=== PATIENT | male | born 1955 | race Caucasian/White ===

== ENCOUNTER 2016-11-08 22:24 | Emergency (ER) | payer BC ==
[~2016-11-08] VITALS: Ht 172.7 cm; Wt 103.0 kg
[~2016-11-08 22:24] MED LIST: HYDR-906 PO; IBUP-1542 PO
[2016-11-08 22:37] VITALS: Ht 172.7 cm; Wt 103.0 kg
[2016-11-08] MEDS ORDERED: DIPHENHYDRAMINE 25 MG CAP PO ONE (23:30)
--- NOTE | 2016-11-09 00:07 | ERD ---
ER Documentation Chief Complaint Date/Time DATE: 11/08/16 TIME: 23:45 Chief Complaint MULTIPLE BITES ON BACK FROM LITTLE BLACK FLIES HPI This pleasant gentleman speaking male patient brought into emergency department today by his who is available for translation. Patient reports insect bites after cleaning out his music room in his house. Patient has a few of the bugs in an enclosed clear plastic case for nurse practitioner to view. Bugs appear to look like ants, not bedbugs. Patient reports they have lived in the house for 3 years has never experienced bugs are biting in the past. Patient has multiple red raised pruritic welts on back, calves, ankles and feet. Patient reports that he was playing music without a shirt on. Patient denies shortness of breath or fever. Patient has been using [id number] anti-itch spray from [facility] with little relief of symptoms, has not tried any [id number] Benadryl or other antihistamine for itch relief. ROS All systems reviewed and are negative except as per history of present illness. Medications Home Meds Active Scripts Hydrocodone/Acetaminophen (Mallory 5-325 Tablet) 1 Each Tablet, 1 TAB PO Q6H Y for PAIN, #12 TAB Prov:TOÑA DIAZ MD 02/03/16 Ibuprofen* (Motrin*) 600 Mg Tab, 600 MG PO Q6, #20 TAB Prov:TOÑA DIAZ MD 02/03/16 Allergies Allergies: Coded Allergies: No Known Allergy (Unverified , 02/03/16) PMhx/Soc Anesthesia Reaction: No Hx Neurological Disorder: No Hx Respiratory Disorders: No Hx Cardiac Disorders: No Hx Psychiatric Problems: No Hx Miscellaneous Medical Probl: No Hx Alcohol Use: Yes (SOCIAL) Hx Substance Use: No Hx Tobacco Use: No Physical Exam Vitals Vital Signs Date Time Temp Pulse Resp B/P Pulse Ox O2 Delivery O2 Flow Rate FiO2 11/08/16 22:37 96.3 88 18 148/84 95 Vitals stable, triage notes reviewed Physical Exam Const: No acute distress Head: Atraumatic Eyes: Normal Conjunctiva PERRLA, EOMI ENT: Normal External Ears, Nose and Mouth, mucous membranes Neck: Resp: Chest rise and fall symmetrically, no respiratory distress Cardio: Abd: Skin: Multiple scattered red welted raised plaques on back, left calf, right foot. Plaques are erythemic, skin intact, and no scratch [place] Back: Ext: Neur: Awake and alert Psych: Normal Mood and Affect Results 24 hrs Current Medications Medications (Trade) Dose Ordered Sig/Elia Route PRN Reason Start Time Stop Time Status Last Admin Dose Admin Diphenhydramine HCl (Benadryl) 25 mg ONCE ONCE PO 11/08/16 23:30 11/08/16 23:31 DC Procedures/MDM This pleasant 61-year-old male patient presents to emergency department with multiple raised welted insect bites on back, calves, and feet. Patient reports insect bites after cleaning out a music warm and then playing music in the room without his shirt on. Patient denies any history of recent travel. Has lived in the house for 3 years. Has never experience infestation in the past. Patient denies any dog or animal brought into the environment. Patient's is in room who denies any insect bites herself. Cellulitis is not likely although some bites appear to be infected. Plan to treat patient in triage with 25 mg of Benadryl, and discharged home with Keflex, and Benadryl every 6 hours. Patient was encouraged to call a construction inspector. avoid the music room until evaluation by construction inspector. Keep door shut. Return to emergency department for worsening of symptoms, pleuritis, fever, I feel the patient is stable for discharge at this time. I have discussed results, examination findings, the treatment plan with the patient and family present prior to discharge. Indications for emergent reevaluation, side effects of medication were also discussed. All questions were answered. Patient verbalizes understanding and agrees with plan of care. Departure Diagnosis: Primary Impression: Infected insect bite of back Encounter type: initial encounter Laterality: unspecified laterality Qualified Code: S20.479A - Infected insect bite of back, unspecified laterality , initial encounter Condition: Good Patient Instructions: Insect Bite Additional Instructions: Thank you for for coming to [facility] for your care today. Please ask your nurse or provider if you have questions about your care today and do not leave until all your questions have been answered. Please use any medications given as directed and follow-up with your doctor (or the doctor you were referred to) in the next 2-3 days. If you do not have a primary care doctor you may follow up at the [facility] (listed below). You may also use motrin and tylenol as needed for fever and/or pain unless instructed otherwise by your provider or nurse. Indications for more urgent follow-up have been discussed, but you may return to the Emergency Department at ANY time for any worrisome or worsening symptoms. If you have abdominal pain, please know that no test or exam you received is perfect and you should follow up within 8 hours for continued pain. If you had any imaging studies today, such as an X-Ray or CT Scan, these studies will be reviewed later by a radiologist. You will be called if there are important findings that were not identified today, so make sure the contact information you provided at registration is correct. If you received any narcotic pain control medicine today, such as Vicodin, Morphine or Dilaudid, your coordination and judgment may be affected for a number of hours. Please do not drive or operate heavy machinery, and you may want someone to assist you at home. If you were given a prescription for narcotic medication, be aware that it is very addictive- use sparingly and only if necessary. JED MERCHANT Nov 08, 2016 23:55
[2016-11-09] MEDS ORDERED: CEPH-443 PO (00:08)
[2016-11-09] MEDS ORDERED: DIPH25CA6 PO (00:09)
== END 2016-11-09 00:29 | disposition home or self-care (01) ==
LOC: FTE 22:24
DX: S20.469A Insect bite (nonvenomous) of unspecified back wall of thorax, initial encounter (principal); L08.9 Local infection of the skin and subcutaneous tissue, unspecified; W57.XXXA Bitten or stung by nonvenomous insect and other nonvenomous arthropods, initial encounter; Y92.9 Unspecified place or not applicable
CPT/HCPCS: 99283